=== PATIENT | male | born 1980 | race Caucasian/White ===

== ENCOUNTER 2019-03-03 09:10 | Emergency (ER) | payer BC, OTHER ==
[~2019-03-03] VITALS: Ht 188 cm; Wt 125.0 kg
[2019-03-03 09:11] VITALS: BP 160/91
[2019-03-03 09:56] LABS: BASO % 0.5 % (0.0-1.0); EOS % 0.3 % (0.0-3.0); HEMATOCRIT 43.1 % (42.0-52.0); HEMOGLOBIN 15.4 g/dl (13.5-17.5); LYMPH # 0.9 10^3/uL (1.5-4.5); LYMPH % 13.2 % (24.0-44.0); MEAN CORPUSCULAR HEMOGLOBIN 31.4 pg (27.0-33.0); MEAN CORPUSCULAR HGB CONC 35.7 g/dl (32.0-36.5); MEAN CORPUSCULAR VOLUME 87.8 fl (80.0-96.0); MONO # 0.8 10^3/uL (0.0-0.8); MONO % 12.8 % (0.0-5.0); NEUTROPHILS # 4.7 10^3/uL (1.8-7.7); NEUTROPHILS % 72.9 % (36.0-66.0); PLATELET COUNT, AUTOMATED 169 10^3/uL (150-450); RED BLOOD COUNT 4.91 10^6/uL (4.30-6.10); WHITE BLOOD COUNT 6.4 10^3/uL (4.0-10.0)
[2019-03-03 10:27] LABS: BLOOD UREA NITROGEN 12 MG/DL (7-18); C REACTIVE PROTEIN QUANTITATIV 5.48 MG/DL (0.00-0.30); CALCIUM LEVEL 9.1 MG/DL (8.5-10.1); CARBON DIOXIDE LEVEL 28 MEQ/L (21-32); CHLORIDE LEVEL 102 MEQ/L (98-107); CREATININE FOR GFR 1.18 MG/DL (0.70-1.30); GLOMERULAR FILTRATION RATE > 60.0 (>60); GLUCOSE, FASTING 101 MG/DL (70-100); POTASSIUM SERUM 4.3 MEQ/L (3.5-5.1); SODIUM LEVEL 135 MEQ/L (136-145)
[2019-03-03] MEDS ORDERED: VANCOMYCIN HCL 1,000 MG, VIAL MATE ADAPTER 1 EACH in D5W 250 ML IV ONE (10:45)
[2019-03-03] MEDS ORDERED: DOXY100C37 PO (10:46)
[2019-03-03 11:31] LABS: ERYTHROCYTE SEDIMENTATION RATE 22 mm/hr (0-15)
[2019-03-03 12:41] LABS: CHLAMYDIA DNA AMPLIFICATION NEGATIVE (NEGATIVE); GC DNA AMPLIFICATION NEGATIVE (NEGATIVE)
--- NOTE | 2019-03-03 14:04 | REP ---
Clinical: right testicular mass. Technique: Time rizzo scale and color Doppler evaluation using linear and curved array transducers. Findings: The bilateral testicles and epididymi are essentially normal in contour, size, echogenicity, and vascularity without intratesticular mass lesion, infectious/inflammatory process, or torsion. Incidental 5 x 4 mm right epididymal head cyst noted. Trace simple right hydrocele likely insignificant. No varicoceles are identified. Right testicle measures 5.6 x 2.6 x 3.1 cm. Left testicle measures 5.5 x 2.9 x 3.7 cm. Impression: Essentially normal scrotal ultrasound. Electronically Signed by Man Arreola MD 03/03/2019 10:22 A
== END 2019-03-03 12:07 | disposition home or self-care (01) ==
LOC: M ED 10:05
DX: N49.2 Inflammatory disorders of scrotum (principal)
CPT/HCPCS: 76870; 80048; 81001; 83605; 85025; 85652; 86140; 87040; 87491; 87591; 93976; 96365; 99284; J3370